=== PATIENT | male | born 1950 | race Caucasian/White ===

== ENCOUNTER 2023-09-05 14:23 | Emergency (ER) | payer MEDICAID, SELFPAY ==
[2023-09-05] VITALS (8 sets, daily range): BP systolic 95–140; BP diastolic 58–87; PULSE 89–116; RESP 14–20; TEMP 36.4; O2SAT 92–97; BMI 22.1
--- NOTE | 2023-09-05 15:12 | W.ED.MALEGU ---
HPI - Male Genitourinary General: Chief complaint: Urogenital-Male Stated complaint: cath issues Time Seen by Provider: 09/05/23 14:23 History of Present Illness: 73-year-old male presents to the emergency department for Ruiz catheter complication. Nurses report that patient is at a local [facility] facility. He had a Ruiz catheter placed approximately 1 month ago for acute urinary retention with obstructive uropathy and nephropathy. They went to replace it today and reportedly erred up the Ruiz catheter balloon in the urethra. It was deflated and removed. There was some bleeding at the urethral meatus. On arrival to the ER patient has scant amount of bright red blood at the urethral meatus. It appears the patient has some cognitive impairment as he asked the same questions several times. He reports he has some soreness at the tip of his penis but has no other concerns. Review of Systems Narrative: Review of systems is limited due to the patient's apparent cognitive impairment. He reports he has some pain at the tip of his penis. He does recall that the Ruiz catheter was placed about 1 month ago. He does understand that when they were changing the catheter something happened. He reports no other symptoms. Physical Exam Narrative: EXAM NARRATIVE: elderly, deconditioned male. He is in no distress. He has some repetitive comments. He is not fully oriented but has normal alertness. He feels like his bladder is slightly distended. He has some blood at the urethral meatus. His heart rate is mildly elevated in the 90s. Const: COMMON NORMALS: alert EXAM LIMITATIONS: no altered mental status HENMT: COMMON NORMALS: normocephalic, atraumatic and external ears normal HEAD & SCALP: normocephalic and atraumatic EXTERNAL EAR: Yes external ears normal MOUTH: no muffled voice Eye: COMMON NORMALS: EOMs intact bilaterally, conjunctivae normal and no scleral icterus CONJUNCTIVA: Yes conjunctivae normal Neck/C-Spine: COMMON NORMALS: no JVD GENERAL: Yes normal visual inspection and Yes trachea midline Resp: COMMON NORMALS: normal respiratory effort, No use of accessory muscles and clear to auscultation bilaterally AUSCULTATION: clear to auscultation bilaterally Cardio: COMMON NORMALS: no JVD and regular rhythm RHYTHM: regular rhythm GI: PALPATION: Yes Bladder palpation abnormal (Feels enlarged) : BLADDER/KIDNEY EXAM: No catheter in place and Yes Bladder palpation abnormal (Feels enlarged) PENIS: circumcised, no ecchymosis, not edematous, not erythematous, no pustules, no vesicles and other (Some bright red blood at the urethral meatus, coralwis wnl) Extremity: COMMON NORMALS: normal to inspection Neuro: COMMON NORMALS: moves all extremities and no focal motor deficits SENSORIUM/ORIENTATION: Yes alert SPEECH: speech normal Psych: COMMON NORMALS: Normal thought process present, cooperative, normal affect and speech normal SPEECH: Yes normal speech THOUGHT PROCESS: Normal thought process present Course Vital Signs: Vital signs: Vital Signs Temperature 97.6 F 09/05/23 14:23 Pulse Rate 110 H 09/05/23 20:30 Respiratory Rate 18 09/05/23 20:30 Blood Pressure 109/67 09/05/23 20:30 Pulse Oximetry 95 09/05/23 20:30 Oxygen Delivery Me thod Room Air 09/05/23 14:23 MDM - Male Medical Decision Making Patient with a reported recent history of obstructive uropathy requiring Ruiz catheter. Evidently, [facility], the Ruiz balloon was inflated while still in the urethra. There is some blood at the urethral meatus. The plan is to do a bladder scan to confirm that there is urine in the bladder, administer Uro-Jet, and then to carefully see if we can place a Ruiz catheter. I advised the nurse that there is a possibility of false tracts or urethral injury from the balloon this morning. They are going to proceed slowly and we are going to confirm that the catheter makes it into the bladder. If there are complications then we will stop and reconsider the plan. I will also send a urine analysis. Update 1729 2 nurses have attempted to place a Ruiz catheter. The first was a 16 Slovak Ruiz, the second was a coud?. I attempted as well. Meeting resistance right around the level of the prostate. All were getting back is gross blood in the Ruiz tube. Given the reported trauma to the urethra and gross blood with inability to pass a catheter, we are going to need the assistance of urology. Urologist is not available at this hospital. [facility] I spoke with Aníbal at the transfer center. I went ahead and placed an order for CBC and CMP to evaluate the patient's renal function and electrolytes as well as his hemoglobin while we are awaiting transfer. Update 1814 I was able to obtain records from [facility]dc facility. Patient is confirmed to be diagnosed with Alzheimer's dementia as well as BPH. He is on Proscar and Flomax. White blood cell count returned at 11.5, chemistries are pending. UPDATE 2034 Patient is not going to get a room at [facility] until tomorrow. They are not able to take him in the emergency department. We are going to do every 2 hour bladder scans. I will put the patient on maintenance IV fluids. I will start him on a regular diet. At this time he is not in renal failure and is not uremic. Lab Data 09/05/23 18:12 09/05/23 18:12 Laboratory Results WBC 11.48 10^3/uL (3.29-11.43) H 09/05/23 18:12 RBC 4.03 10^6/uL (3.85-5.65) 09/05/23 18:12 Hgb 12.50 g/dL (11.27-16.99) 09/05/23 18:12 Hct 38.1 % (37-53) 09/05/23 18:12 MCV 94.5 fl (82-101) 09/05/23 18:12 MCH 31.0 pg (27-33) 09/05/23 18:12 MCHC 32.8 g/dL (30-55) 09/05/23 18:12 RDW 14.4 % (12.1-15.1) 09/05/23 18:12 Plt Count 316 10^3/cmm (157-399) 09/05/23 18:12 MPV 10.3 fL (7.4-10.4) 09/05/23 18:12 Neut % (Auto) 84.3 % 09/05/23 18:12 Lymph % (Auto) 5.5 % 09/05/23 18:12 [place] % (Auto) 8.3 % 09/05/23 18:12 Eos % (Auto) 0.4 % 09/05/23 18:12 Baso % (Auto) 0.7 % 09/05/23 18:12 Neut # (Auto) 9.68 10^3/uL (1.8-7.7) H 09/05/23 18:12 Lymph # (Auto) 0.6 10^3/uL (0.8-4.8) L 09/05/23 18:12 [place] # (Auto) 1.0 10^3/uL (0.2-0.9) H 09/05/23 18:12 Eos # (Auto) 0.1 10^3/uL (0.0-0.8) 09/05/23 18:12 Baso # (Auto) 0.1 10^3/uL (0.0-0.1) 09/05/23 18:12 Nucleated RBC % (auto) 0 % 09/05/23 18:12 Nucleated RBCs # 0.0 /100WBC 09/05/23 18:12 Sodium 141 mmol/L (136-145) 09/05/23 18:12 Potassium 4.5 mmol/L (3.5-5.1) 09/05/23 18:12 Chloride 103 mmol/L (98-107) 09/05/23 18:12 Carbon Dioxide 18 mmol/L (22-29) L 09/05/23 18:12 Anion Gap 24.5 (5-19) H 09/05/23 18:12 BUN 14 mg/dL (8-23) 09/05/23 18:12 Creatinine 1.2 mg/dL (0.7-1.2) 09/05/23 18:12 GFR Calculation Not Reportable 09/05/23 18:12 Glucose 92 mg/dL (65-115) 09/05/23 18:12 Calculated Osmolality 292 mOsm/kg (285-295) 09/05/23 18:12 Calcium 9.5 mg/dL (8.5-10.5) 09/05/23 18:12 Total Bilirubin 0.6 mg/dL (0.15-1.2) 09/05/23 18:12 AST 46 U/L (0-40) H 09/05/23 18:12 ALT 97 U/L (0-41) H 09/05/23 18:12 Alkaline Phosphatase 91 U/L (40-130) 09/05/23 18:12 Total Protein 7.2 g/dL (6.6-8.7) 09/05/23 18:12 Albumin 3.8 g/dL (3.5-5.2) 09/05/23 18:12 Globulin 3.4 g/dL (1.3-4.6) 09/05/23 18:12 No radiology studies performed this visit Discharge Plan Discharge Patient Disposition: Xfer Short-Term Hosp Clinical Impression: Injury of male urethra, Obstructive uropathy, Complication of Ruiz catheter, Benign prostatic hyperplasia, Alzheimer's dementia Condition: Stable Discharge Orders: Transfer Out of Facility (Order); Ordered 09/05/23 Ordered By: Luisito Alexander Referrals: Kulwinder Skinner [Primary Care Provider] - Coding Level of Care Code ED [employer] [facility]
[2023-09-05] MEDS: lidocaine 2% Urojet 20 mL TOPICAL (16:03)
--- NOTE | 2023-09-05 17:48 | PC.NURSE ---
attempted to place 16F and 16F coude catheter, fransisco red blood return in catheter tubing during insertion but extreme resistance is met at prostate and despite different positioning and maneuver nurse is unable to advance catheter into bladder. provider ntfd of 2 failed attempts of placing ortiz catheter
[2023-09-05 18:18] LABS: Basophils # 0.1 10^3/uL (0.0-0.1); Basophils % 0.7 %; Eosinophils # 0.1 10^3/uL (0.0-0.8); Eosinophils % 0.4 %; Hematocrit 38.1 % (37-53); Lymphocytes # 0.6 10^3/uL (0.8-4.8); Lymphocytes % 5.5 %; Mean Corpuscular HGB Conc 32.8 g/dL (30-55); Mean Corpuscular Volume 94.5 fl (82-101); Mean Platelet Volume 10.3 fL (7.4-10.4); Monocytes % 8.3 %; Neutrophils # 9.68 10^3/uL (1.8-7.7); Neutrophils % 84.3 %; Nucleated Red Blood Cells % 0 %; Platelet Count 316 10^3/cmm (157-399); Red Blood Count 4.03 10^6/uL (3.85-5.65); Red Cell Distribution Width 14.4 % (12.1-15.1); White Blood Count 11.48 10^3/uL (3.29-11.43)
[2023-09-05 18:34] LABS: Alanine Aminotransferase 97 U/L (0-41); Albumin Level 3.8 g/dL (3.5-5.2); Alkaline Phosphatase 91 U/L (40-130); Anion Gap 24.5 (5-19); Aspartate Amino Transferase 46 U/L (0-40); Blood Urea Nitrogen 14 mg/dL (8-23); Calcium 9.5 mg/dL (8.5-10.5); Carbon Dioxide 18 mmol/L (22-29); Chloride 103 mmol/L (98-107); Creatinine Clr Calc Pharmacy 52.3879; Globulin 3.4 g/dL (1.3-4.6); Glucose 92 mg/dL (65-115); Osmolality Calculated 292 mOsm/kg (285-295); Potassium 4.5 mmol/L (3.5-5.1); Sodium 141 mmol/L (136-145); Total Bilirubin 0.6 mg/dL (0.15-1.2); Total Protein 7.2 g/dL (6.6-8.7)
--- NOTE | 2023-09-05 18:45 | PC.NURSE ---
Pt had watery bm, cleaned patient and put on new brief
--- NOTE | 2023-09-05 20:31 | PC.NURSE ---
Completed third bladder scan, 238 mL urine
--- NOTE | 2023-09-05 20:45 | PC.NURSE ---
pt had watery bm, cleaned pt and removed dirty linens, placed new brief on pt
--- NOTE | 2023-09-05 20:59 | PC.NURSE ---
this nurse assumed care @2100 on 09/05/2023
--- NOTE | 2023-09-05 21:10 | PC.NURSE ---
medication delay: maintenance fluids delayed d/t not being verified.
[2023-09-05] MEDS: sodium chloride 0.9% 1,000 ML 125 ML IV (22:00)
--- NOTE | 2023-09-05 22:49 | PC.NURSE ---
fourth bladder scan @2230 223 mL of urine
[2023-09-05] MEDS: mirtazapine 30 mg Tablet PO (22:50)
[2023-09-05] MEDS: acetaminophen 325 mg Tablet 650 MG PO (22:50)
[2023-09-05] MEDS: quetiapine 25 mg Tablet 50 MG PO (22:50)
[2023-09-05] MEDS: pantoprazole DR 40 mg Tablet PO (22:50)
--- NOTE | 2023-09-05 22:50 | PC.NURSE ---
this nurse crushed medications and mixed in water per request of patient. pt had intake of approx 40mLs of water with medication administration.
[2023-09-06] VITALS (16 sets, daily range): BP systolic 98–144; BP diastolic 59–83; PULSE 72–95; RESP 16; O2SAT 91–99
--- NOTE | 2023-09-06 07:09 | PC.PHAR ---
PT IS FROM [facility] IN [facility]. 09/06/23
--- NOTE | 2023-09-06 08:08 | PC.PHAR ---
pt is from [facility] [phone]-per alexandra nurse at [facility] states the pts iron 325mg daily,flomax 0.4mg 1 cap hs,lasix 40mg daily,lisinopril 10mg daily,milk of mag 30ml po daily prn,natural tears,potassium chloride 20meq/15ml liquid 10meq daily,remeron 30mg hs,rulox 30ml q2h prn gastritis,seroquel 100mg bid and tessalon perles 100mg q4h prn were all dced states all dced between 08/19/23 and 08/24/23 states the shelter was trying to get him into behavioral unit so dr guzmán most of his meds-[place] states the pt has only been taking what medications are entered
[2023-09-06] MEDS: finasteride 5 mg Tablet PO (09:08)
[2023-09-06] MEDS: tamsulosin 0.4 mg Capsule PO (09:08)
--- NOTE | 2023-09-06 13:38 | DCPLANNER ---
I called [facility] transfer center at [phone] on 09/06. Myah with transfer center stated still waiting on discharges.
--- NOTE | 2023-09-06 17:39 | PC.NURSE ---
REPORT CALLED TO ABHISHEK LOFTON AT [facility] FOR TRANSFER.
== END 2023-09-06 18:21 | disposition short-term general hospital (02) ==
PROVIDERS: Emergency Provider Emergency Medicine; Family Provider Family Medicine; PCP Family Medicine
DX: T83.098A Other mechanical complication of other urinary catheter, initial encounter (principal); N13.9 Obstructive and reflux uropathy, unspecified; N40.0 Benign prostatic hyperplasia without lower urinary tract symptoms; G30.9 Alzheimer's disease, unspecified; F02.80 Dementia in other diseases classified elsewhere, unspecified severity, without behavioral disturbance, psychotic disturbance, mood disturbance, and anxiety; S37.39XA Other injury of urethra, initial encounter; Y73.1 Therapeutic (nonsurgical) and rehabilitative gastroenterology and urology devices associated with adverse incidents
CPT/HCPCS: 36415; 51798; 80053; 85025; 99285; J7030